=== PATIENT | female | born 1955 | race Caucasian/White ===

== ENCOUNTER 2019-11-19 08:34 | Emergency (ER) | payer OTHER ==
[~2019-11-19] VITALS: Ht 157.5 cm; Wt 54.4 kg
[~2019-11-19 08:34] MED LIST: CEFTRIAXONE; DEXAMETHASONE0.5 MG; PHENERGAN25 MG; TESSALON PERLE100 M1; TESSALON PERLE100 M1 PO; TUSSI PRES-B L120 M1 PO; ZITHROMAX TRI-500 MG PO; [UNRECOGNIZED DRUG - OTHER]
[2019-11-19] MEDS ORDERED: TOPROL XL25 M1 (08:58)
== END 2019-11-19 11:54 | disposition home or self-care (01) ==
LOC: ER 08:34 → CPU-OBS 08:39 → ER 08:39
DX: R00.2 Palpitations (principal); Z03.818 Encounter for observation for suspected exposure to other biological agents ruled out
CPT/HCPCS: G0378; G0379; 93005